=== PATIENT | male | born 1960 | race Caucasian/White ===

== ENCOUNTER 2021-10-03 10:36 | Inpatient (IN) | payer BC ==
[2021-10-03 11:11] LABS: #Eosinphils 0.1 thou/uL (0.0-0.7); #Lymphocytes 1.9 thou/uL (1.20-3.40); #Monocytes 0.6 thou/uL (0.11-0.59); #Neutrophils 4.6 thou/uL (1.40-6.50); %Basophils 0.7 % (0.0-1.0); %Eosinophils 2.1 % (0.0-10.0); %Lymphocytes 25.7 % (21.0-51.0); %Monocytes 7.7 % (0.0-10.0); %Neutrophils 63.9 % (42.0-75.0); Hemoglobin 15.8 g/dL (14.0-18.0); Mean Corpuscular Hemoglobin 31.6 pg (27.0-31.0); Mean Corpuscular Volume 93.1 fL (78.0-98.0); Mean Platelet Volume 7.4 fL (7.4-10.4); Platelet Count 258 thou/uL (130-400); RBC Distribution Width 12.2 % (11.5-14.5); Red Blood Cell (RBC) Count 4.99 mill/uL (4.70-6.10); White Blood Cell (WBC) Count 7.2 thou/uL (4.8-10.8)
[2021-10-03 11:34] LABS: ALT (SGPT) 40 U/L (8-55); AST (SGOT) 32 U/L (5-34); Albumin 4.1 g/dL (3.4-4.8); Alkaline Phosphatase 99 U/L (40-110); Anion Gap 14 mmol/L (10-20); BUN (Urea Nitrogen) 24 mg/dL (8.4-25.7); Bilirubin, Total 0.5 mg/dL (0.2-1.2); Calc. Creatinine Clearance 0 mL/min (70-130); Calcium 9.2 mg/dL (7.8-10.44); Carbon Dioxide 23 mmol/L (23-31); Chloride 106 mmol/L (98-107); Estimated GFR 90; Globulin 3.3 g/dL (2.4-3.5); Glucose 112 mg/dL (80-115); Potassium 4.5 mmol/L (3.5-5.1); Protein, Total 7.4 g/dL (5.8-8.1); Sodium 138 mmol/L (136-145)
[2021-10-03 11:56] LABS: CKMB 3.8 ng/mL (0-6.6)
[2021-10-03 12:58] LABS: Bacteria/HPF None Seen HPF (None Seen); Bilirubin Negative (Negative); Blood, Urine Negative (Negative); Clarity Clear (Clear); Glucose, Urine (Dipstick) Normal (Negative); Ketone, Urine Negative (Negative); Leukocyte 25 Leu/uL (Negative); Nitrite Negative (Negative); Protein, Urine (Dipstick) Negative (Neg-Trace); RBC/HPF 0-3 HPF (0-3); Specific Gravity, Urine 1.017 (1.002-1.036); Squamous Epithelial None Seen HPF (0-3); Urobilinogen Normal mg/dL (Less than 2); WBC/HPF 0-3 HPF (0-3)
[2021-10-03] MEDS ORDERED: Aspirin Chewable 81 MG TAB ONE (13:14)
[2021-10-03] MEDS ORDERED: Acetaminophen 325 MG TAB PO PRN (14:16)
[2021-10-03] MEDS ORDERED: Ondansetron PF 4 MG/2 ML Vial IVP PRN (14:17)
[2021-10-03 14:33] LABS: Troponin I 0.174 ng/mL (< 0.028)
[2021-10-03] MEDS ORDERED: Ondansetron ODT 4 MG TAB PO PRN (14:54)
[2021-10-03 15:13] VITALS: BMI 30.1
[2021-10-03 16:35] LABS: Hemoglobin A1c 5.4 % (4.0-6.0)
[2021-10-03 16:51] LABS: Phosphorus 3.2 mg/dL (2.3-4.7)
[2021-10-03 17:08] LABS: Troponin I 0.164 ng/mL (< 0.028)
[2021-10-03] MEDS: Atorvastatin Calcium 40 MG TAB PO SCH (20:27)
[2021-10-03] MEDS: Sacubitril 49 MG/Valsartan 51 MG TABLET PO SCH (20:28)
[2021-10-04 04:32] LABS: Hemoglobin 14.2 g/dL (14.0-18.0); Mean Corpuscular HGB CONC 34.5 g/dL (32.0-36.0); Mean Corpuscular Hemoglobin 32.7 pg (27.0-31.0); Mean Corpuscular Volume 94.8 fL (78.0-98.0); Mean Platelet Volume 7.5 fL (7.4-10.4); Platelet Count 209 thou/uL (130-400); RBC Distribution Width 12.4 % (11.5-14.5); Red Blood Cell (RBC) Count 4.34 mill/uL (4.70-6.10); White Blood Cell (WBC) Count 6.3 thou/uL (4.8-10.8)
[2021-10-04 04:46] LABS: Anion Gap 12 mmol/L (10-20); BUN (Urea Nitrogen) 21 mg/dL (8.4-25.7); Calc. Creatinine Clearance 100 mL/min (70-130); Calcium 9.3 mg/dL (7.8-10.44); Carbon Dioxide 27 mmol/L (23-31); Cardiac Risk 6.5 (Less than 4.5); Chloride 104 mmol/L (98-107); Cholesterol 207 mg/dl (< 200 Desired); Estimated GFR 95; Glucose 110 mg/dL (80-115); HDL Cholesterol 32 mg/dL (>60 Neg Risk); LDL Cholesterol, Calculated 108 mg/dL; Potassium 4.1 mmol/L (3.5-5.1); Sodium 139 mmol/L (136-145); Triglycerides 333 mg/dL (Less than 150)
[2021-10-04] MEDS ORDERED: Communication Order-Pharmacy FS SCH (08:45)
[2021-10-04] MEDS ORDERED: Amlodipine 10 MG TAB PO SCH (09:00)
[2021-10-04] MEDS: Enoxaparin Sodium 40 MG/0.4 ML SYRINGE SC SCH (10:00)
[2021-10-04] MEDS: Icosapent Ethyl 1 GM CAPSULE PO SCH ×2 (10:00→20:58)
[2021-10-04] MEDS: Cyanocobalamin (Vitamin B-12) 1,000 MCG TAB PO SCH (10:01)
[2021-10-04] MEDS: Ezetimibe 10 MG TAB PO SCH (10:01)
[2021-10-04] MEDS: Sacubitril 49 MG/Valsartan 51 MG TABLET PO SCH ×2 (10:01→20:58)
[2021-10-04] MEDS: Spironolactone 25 MG TAB PO SCH (10:01)
[2021-10-04] MEDS: Venlafaxine HCl XR 150 MG CAP PO SCH (10:01)
[2021-10-04] MEDS: Furosemide 20 MG TAB PO SCH (10:02)
[2021-10-04] MEDS: Empagliflozin 10 MG TAB PO SCH (10:02)
[2021-10-04] MEDS: Multivitamin W/ Minerals 1 TAB PO SCH (10:02)
[2021-10-04] MEDS: Cholecalciferol 1,000 UNITS (25 MCG) TAB PO SCH (10:02)
[2021-10-04] MEDS: Atorvastatin Calcium 40 MG TAB PO SCH (20:58)
[2021-10-05] MEDS: Multivitamin W/ Minerals 1 TAB PO SCH (08:54)
[2021-10-05] MEDS: Icosapent Ethyl 1 GM CAPSULE PO SCH ×2 (08:54→20:27)
[2021-10-05] MEDS: Cholecalciferol 1,000 UNITS (25 MCG) TAB PO SCH (08:54)
[2021-10-05] MEDS: Ezetimibe 10 MG TAB PO SCH (08:54)
[2021-10-05] MEDS: Enoxaparin Sodium 40 MG/0.4 ML SYRINGE SC SCH (08:54)
[2021-10-05] MEDS: Venlafaxine HCl XR 150 MG CAP PO SCH (08:54)
[2021-10-05] MEDS: Sacubitril 49 MG/Valsartan 51 MG TABLET PO SCH ×2 (08:54→20:28)
[2021-10-05] MEDS: Empagliflozin 10 MG TAB PO SCH (08:54)
[2021-10-05] MEDS: Cyanocobalamin (Vitamin B-12) 1,000 MCG TAB PO SCH (08:54)
[2021-10-05] MEDS: Furosemide 20 MG TAB PO SCH (08:55)
[2021-10-05] MEDS: Spironolactone 25 MG TAB PO SCH (08:55)
[2021-10-05] MEDS: Atorvastatin Calcium 40 MG TAB PO SCH (20:28)
[2021-10-06 06:52] LABS: #Eosinphils 0.2 thou/uL (0.0-0.7); #Lymphocytes 2.3 thou/uL (1.20-3.40); #Monocytes 0.9 thou/uL (0.11-0.59); #Neutrophils 6.3 thou/uL (1.40-6.50); %Basophils 0.4 % (0.0-1.0); %Eosinophils 1.8 % (0.0-10.0); %Lymphocytes 23.6 % (21.0-51.0); %Monocytes 8.9 % (0.0-10.0); %Neutrophils 65.4 % (42.0-75.0); Hemoglobin 15.4 g/dL (14.0-18.0); Mean Corpuscular HGB CONC 34.9 g/dL (32.0-36.0); Mean Corpuscular Hemoglobin 32.8 pg (27.0-31.0); Mean Corpuscular Volume 94.1 fL (78.0-98.0); Mean Platelet Volume 7.3 fL (7.4-10.4); Platelet Count 230 thou/uL (130-400); RBC Distribution Width 12.4 % (11.5-14.5); White Blood Cell (WBC) Count 9.6 thou/uL (4.8-10.8)
[2021-10-06 07:11] LABS: Anion Gap 13 mmol/L (10-20); BUN (Urea Nitrogen) 17 mg/dL (8.4-25.7); Calc. Creatinine Clearance 75 mL/min (70-130); Calcium 9.4 mg/dL (7.8-10.44); Carbon Dioxide 27 mmol/L (23-31); Chloride 103 mmol/L (98-107); Estimated GFR 71; Glucose 104 mg/dL (80-115); Potassium 4.6 mmol/L (3.5-5.1); Sodium 138 mmol/L (136-145)
[2021-10-06] MEDS: Sacubitril 49 MG/Valsartan 51 MG TABLET PO SCH ×2 (08:40→21:22)
[2021-10-06] MEDS: Multivitamin W/ Minerals 1 TAB PO SCH (08:40)
[2021-10-06] MEDS: Cholecalciferol 1,000 UNITS (25 MCG) TAB PO SCH (08:40)
[2021-10-06] MEDS: Icosapent Ethyl 1 GM CAPSULE PO SCH ×2 (08:40→21:22)
[2021-10-06] MEDS: Enoxaparin Sodium 40 MG/0.4 ML SYRINGE SC SCH (08:40)
[2021-10-06] MEDS: Cyanocobalamin (Vitamin B-12) 1,000 MCG TAB PO SCH (08:40)
[2021-10-06] MEDS: Ezetimibe 10 MG TAB PO SCH (08:40)
[2021-10-06] MEDS: Venlafaxine HCl XR 150 MG CAP PO SCH (08:41)
[2021-10-06] MEDS: Empagliflozin 10 MG TAB PO SCH (08:41)
[2021-10-06] MEDS: Furosemide 20 MG TAB PO SCH (08:41)
[2021-10-06] MEDS ORDERED: Communication Order-Pharmacy FS SCH (09:15)
[2021-10-06] MEDS ORDERED: Zolpidem Tartrate 5 MG TAB PO PRN (16:42)
[2021-10-06] MEDS: Atorvastatin Calcium 40 MG TAB PO SCH (21:21)
[2021-10-06] MEDS: hydrOXYzine 25 MG TAB PO PRN (21:26)
[2021-10-07] MEDS: Sodium Chloride 0.9% 1,000 ML IV SCH ×2 (06:02→16:54)
[2021-10-07] MEDS ORDERED: Lidocaine 1% (PF) 30 ML VIAL ONE ×2 (07:36→09:06)
[2021-10-07] MEDS ORDERED: Fentanyl 100 MCG/2 ML VIAL ONE ×2 (09:06→10:40)
[2021-10-07] MEDS ORDERED: Midazolam HCl 2 mg/2 ml Vial ONE (09:06)
[2021-10-07] MEDS: Sacubitril 49 MG/Valsartan 51 MG TABLET PO SCH ×2 (09:31→21:04)
[2021-10-07] MEDS: Spironolactone 25 MG TAB PO SCH (09:31)
[2021-10-07] MEDS: Ezetimibe 10 MG TAB PO SCH (09:31)
[2021-10-07] MEDS: Cyanocobalamin (Vitamin B-12) 1,000 MCG TAB PO SCH (09:31)
[2021-10-07] MEDS: Multivitamin W/ Minerals 1 TAB PO SCH (09:31)
[2021-10-07] MEDS: Cholecalciferol 1,000 UNITS (25 MCG) TAB PO SCH (09:31)
[2021-10-07] MEDS: Icosapent Ethyl 1 GM CAPSULE PO SCH ×2 (09:31→21:05)
[2021-10-07] MEDS: Furosemide 20 MG TAB PO SCH (09:31)
[2021-10-07] MEDS: Venlafaxine HCl XR 150 MG CAP PO SCH (09:32)
[2021-10-07] MEDS ORDERED: Clindamycin/D5W 900 mg/50 ml Premix Bag ONE (10:33)
[2021-10-07] MEDS ORDERED: Lidocaine 1% PF 5 ML VIAL ONE ×2 (10:33→10:59)
[2021-10-07] MEDS ORDERED: Gentamicin 80 MG/100 ML BAG ONE (10:33)
[2021-10-07] MEDS ORDERED: Phenylephrine 10 MG/ML VIAL ONE ×2 (10:40→10:59)
[2021-10-07] MEDS ORDERED: Ketamine 50 MG/ML (10ML VIAL) ONE (10:48)
[2021-10-07] MEDS ORDERED: Rocuronium Bromide 10 MG/ML (10ML VIAL) ONE (10:59)
[2021-10-07] MEDS ORDERED: Dexamethasone 20 MG/5 ML VIAL ONE (10:59)
[2021-10-07] MEDS ORDERED: Ondansetron PF 4 MG/2 ML Vial ONE (10:59)
[2021-10-07] MEDS ORDERED: SUGAMMADEX SODIUM 200 MG/2 ML VIAL ONE (12:05)
[2021-10-07] MEDS ORDERED: Iopamidol 370 76% 100 ML VIAL ONE (13:26)
[2021-10-07] MEDS ORDERED: Iopamidol 370 76% 50 ML VIAL FS ONE (15:46)
[2021-10-07] MEDS: hydrOXYzine 25 MG TAB PO PRN (21:04)
[2021-10-07] MEDS: Atorvastatin Calcium 40 MG TAB PO SCH (21:04)
[2021-10-07] MEDS: Doxycycline 100 MG CAP PO SCH (21:05)
[2021-10-08 04:47] LABS: #Eosinphils 0.1 thou/uL (0.0-0.7); #Lymphocytes 1.3 thou/uL (1.20-3.40); #Monocytes 0.8 thou/uL (0.11-0.59); #Neutrophils 8.3 thou/uL (1.40-6.50); %Basophils 0.1 % (0.0-1.0); %Eosinophils 0.5 % (0.0-10.0); %Lymphocytes 12.6 % (21.0-51.0); %Monocytes 7.1 % (0.0-10.0); %Neutrophils 79.6 % (42.0-75.0); Hemoglobin 13.5 g/dL (14.0-18.0); Mean Corpuscular HGB CONC 34.4 g/dL (32.0-36.0); Mean Corpuscular Hemoglobin 32.7 pg (27.0-31.0); Mean Corpuscular Volume 94.9 fL (78.0-98.0); Mean Platelet Volume 7.6 fL (7.4-10.4); Platelet Count 194 thou/uL (130-400); RBC Distribution Width 12.3 % (11.5-14.5); Red Blood Cell (RBC) Count 4.15 mill/uL (4.70-6.10); White Blood Cell (WBC) Count 10.5 thou/uL (4.8-10.8)
[2021-10-08 05:01] LABS: Anion Gap 11 mmol/L (10-20); BUN (Urea Nitrogen) 16 mg/dL (8.4-25.7); Calc. Creatinine Clearance 95 mL/min (70-130); Calcium 8.8 mg/dL (7.8-10.44); Carbon Dioxide 25 mmol/L (23-31); Chloride 107 mmol/L (98-107); Estimated GFR 95; Glucose 135 mg/dL (80-115); Potassium 3.9 mmol/L (3.5-5.1); Sodium 139 mmol/L (136-145)
[2021-10-08] MEDS: Sodium Chloride 0.9% 1,000 ML IV SCH ×2 (05:32→10:04)
[2021-10-08] MEDS ORDERED: Empagliflozin 10 MG TAB PO SCH (07:30)
[2021-10-08] MEDS: Cholecalciferol 1,000 UNITS (25 MCG) TAB PO SCH (09:55)
[2021-10-08] MEDS: Ezetimibe 10 MG TAB PO SCH (09:56)
[2021-10-08] MEDS: Cyanocobalamin (Vitamin B-12) 1,000 MCG TAB PO SCH (09:56)
[2021-10-08] MEDS: Furosemide 20 MG TAB PO SCH (09:56)
[2021-10-08] MEDS: Doxycycline 100 MG CAP PO SCH (09:56)
[2021-10-08] MEDS: Sacubitril 49 MG/Valsartan 51 MG TABLET PO SCH (09:57)
[2021-10-08] MEDS: Venlafaxine HCl XR 150 MG CAP PO SCH (09:57)
[2021-10-08] MEDS: Spironolactone 25 MG TAB PO SCH (09:57)
[2021-10-08] MEDS: Icosapent Ethyl 1 GM CAPSULE PO SCH (09:57)
[2021-10-08] MEDS: Multivitamin W/ Minerals 1 TAB PO SCH (09:58)
[2021-10-08 12:22] VITALS: BP 141/85; TEMP 97.7
== END 2021-10-08 12:31 | disposition home or self-care (01) | DRG 225 ==
LOC: ERS 10:36 → 2NO 14:35
PROVIDERS: ADMIT Family Medicine; ATTEND Student in an Organized Health Care Education/Training Program
PROC: 0JH609Z Insertion of Cardiac Resynchronization Defibrillator Pulse Generator into Chest Subcutaneous Tissue and Fascia, Open Approach (ICD-10-PCS; principal; 2021-10-07)
PROC: 4A023N7 Measurement of Cardiac Sampling and Pressure, Left Heart, Percutaneous Approach (ICD-10-PCS; 2021-10-07)
PROC: 02HK0KZ Insertion of Defibrillator Lead into Right Ventricle, Open Approach (ICD-10-PCS; 2021-10-07)
PROC: 02HL0KZ Insertion of Defibrillator Lead into Left Ventricle, Open Approach (ICD-10-PCS; 2021-10-07)
PROC: 02H60KZ Insertion of Defibrillator Lead into Right Atrium, Open Approach (ICD-10-PCS; 2021-10-07)
PROC: B2111ZZ Fluoroscopy of Multiple Coronary Arteries using Low Osmolar Contrast (ICD-10-PCS; 2021-10-07)
PROC: B2151ZZ Fluoroscopy of Left Heart using Low Osmolar Contrast (ICD-10-PCS; 2021-10-07)
DX: I47.2 Ventricular tachycardia (principal); I50.22 Chronic systolic (congestive) heart failure; Z20.822 Contact with and (suspected) exposure to COVID-19; I11.0 Hypertensive heart disease with heart failure; I48.0 Paroxysmal atrial fibrillation; I25.10 Atherosclerotic heart disease of native coronary artery without angina pectoris; F41.9 Anxiety disorder, unspecified; I25.5 Ischemic cardiomyopathy; I44.7 Left bundle-branch block, unspecified; F41.0 Panic disorder [episodic paroxysmal anxiety]; Z88.0 Allergy status to penicillin; E78.2 Mixed hyperlipidemia; Z79.01 Long term (current) use of anticoagulants; Z79.899 Other long term (current) drug therapy; Z95.5 Presence of coronary angioplasty implant and graft; Z86.16 Personal history of COVID-19
CPT/HCPCS: 33225; 33249; 36415; 71045; 80048; 80053; 80061; 81003; 81015; 82553; 83036; 83735; 83880; 84100; 84443; 84484; 85025; 85027; 93005; 93306; 93458; 97139; 99152; C1769; C1777; C1882; C1894; C1898; C1900; J1100; J1580; J1650; J2001; J2250; J2370; J2405; J3010; J3490; J7050; Q9967; U0003; U0005

== ENCOUNTER 2022-10-01 06:31 | Day surgery (SDC) | payer BC ==
[2022-09-29 15:16] VITALS: BMI 30.7
[2022-09-29 16:13] LABS: Hemoglobin 14.7 g/dL (13.5-17.5); Mean Corpuscular HGB CONC 34.3 g/dL (32.0-36.0); Mean Corpuscular Hemoglobin 32.2 pg (27.0-33.0); Mean Corpuscular Volume 93.7 fl (81.2-95.1); Mean Platelet Volume 9.3 fl (7.4-10.4); Platelet Count 235 10x3/uL (150-450); Red Blood Cell (RBC) Count 4.57 10x6/uL (4.32-5.72); White Blood Cell (WBC) Count 7.1 10x3/uL (3.5-10.5)
[2022-09-29 16:24] LABS: Anion Gap 15 mmol/L (10-20); BUN (Urea Nitrogen) 16 mg/dL (8.4-25.7); Calc. Creatinine Clearance 76 mL/min (70-130); Calcium 9.4 mg/dL (7.8-10.44); Carbon Dioxide 25 mmol/L (23-31); Chloride 104 mmol/L (98-107); Estimated GFR 68; Glucose 90 mg/dL (80-115); Potassium 4.3 mmol/L (3.5-5.1); Sodium 140 mmol/L (136-145)
[2022-10-01] MEDS ORDERED: Isoproterenol 0.2 MG/1 ML AMP ONE (06:45)
[2022-10-01] MEDS ORDERED: DOPamine 400 MG/D5W 250 ML 0 ML ONE (06:45)
[2022-10-01] MEDS ORDERED: Heparin 10,000 UNITS/ 10 ML VIAL ONE (06:45)
[2022-10-01] MEDS ORDERED: Heparin 25,000 units/D5W 500 ML ONE (06:45)
[2022-10-01] MEDS ORDERED: Protamine Sulfate 50 MG/5 ML VIAL ONE (06:45)
[2022-10-01] MEDS ORDERED: Ketamine 50 MG/ML (10ML VIAL) ONE (08:32)
[2022-10-01] MEDS ORDERED: Midazolam HCl 2 mg/2 ml Vial ONE (08:38)
[2022-10-01] MEDS ORDERED: fentaNYL 50 mcg/mL 1 mL Vial ONE ×3 (08:38→13:32)
[2022-10-01] MEDS ORDERED: PROPOFOL 200 MG/20 ML VIAL ONE (08:39)
[2022-10-01] MEDS ORDERED: Rocuronium Bromide 10 MG/ML (10ML VIAL) ONE (08:39)
[2022-10-01] MEDS ORDERED: PHENYLEPHRINE-NS 100 MCG/ML 10 ML SYRINGE ONE (08:39)
[2022-10-01] MEDS ORDERED: Vasopressin 20 UNITS/ML VIAL ONE (09:53)
== END 2022-10-01 17:00 | disposition home or self-care (01) ==
LOC: SDC 06:31
PROVIDERS: ATTEND Internal Medicine Cardiovascular Disease
DX: I48.0 Paroxysmal atrial fibrillation (principal); I50.9 Heart failure, unspecified; Z88.0 Allergy status to penicillin; Z95.0 Presence of cardiac pacemaker
CPT/HCPCS: 80048; 85027; 85347; 93005; 93622; 93623; 93655; 93656; 93657; C1732; C1759; C1760; C1894; J1265; J1644; J2250; J2704; J2720; J3010